=== PATIENT | female | born 2000 ===

== ENCOUNTER → 2021-06-08 | Outpatient (CLI) | payer OTHER ==
[~2021-06-08] MED LIST: CEPH125SU PO
== END ==
LOC: LAB SHORT 10:15
DX: R35.0 Frequency of micturition (principal)
CPT/HCPCS: 87086

== ENCOUNTER → 2024-09-30 | Outpatient (CLI) | payer OTHER | LOC: LAB 18:40 → LAB SHORT 18:40 | DX: Z32.02 Encounter for pregnancy test, result negative (principal) | CPT/HCPCS: 84702 ==

== ENCOUNTER → 2024-12-18 | Outpatient (CLI) | payer OTHER ==
[2024-12-18 12:32] LABS: BASOPHILS ABSOLUTE AUTO 0.07 K/mm3 (0.00-0.23); BASOPHILS PERCENT AUTO 1 % (0-2); EOSINOPHILS ABSOLUTE AUTO 0.01 K/mm3 (0.00-0.68); EOSINOPHILS PERCENT AUTO 0 % (0-6); Hematocrit 40.8 % (33.0-51.0); Hemoglobin 14.5 g/dL (11.5-16.0); IMMATURE GRAN ABSOLUTE AUTO 0.05 K/mm3 (0.00-0.10); IMMATURE GRAN PERCENT AUTO 0 % (0-1); LYMPHOCYTES ABSOLUTE AUTO 1.91 K/mm3 (0.84-5.20); LYMPHOCYTES PERCENT AUTO 16 % (21-46); MONOCYTES ABSOLUTE AUTO 0.72 K/mm3 (0.16-1.47); MONOCYTES PERCENT AUTO 6 % (4-13); Mean Corpuscular HGB Conc 35.5 g/dL (31.5-36.5); Mean Corpuscular Volume 87 fL (80-100); NEUTROPHILS ABSOLUTE AUTO 9.11 K/mm3 (1.96-9.15); NEUTROPHILS PERCENT AUTO 77 % (41-73); NRBC ABSOLUTE 0.00 K/mm3 (0.00-0.02); NRBC Auto 0.0 /100 WBC (0.0-0.2); Platelet Count 267 K/mm3 (150-400); RDW Coefficient Variation 11.9 % (11.7-14.2); RDW Standard Deviation 38.2 fL (35.1-46.3)
[2024-12-18 13:16] LABS: Alanine Aminotransfer (ALT/SGP 27.0 U/L (12-78); Albumin, Blood 4.0 g/dL (3.4-5.0); Albumin/Globulin Ratio 1.0 (0.8-1.8); Anion Gap 10.0 mmol/L (3-11); Aspartate Aminotrans (AST/SGOT 12.0 U/L (12-37); Bilirubin, Total 0.9 mg/dL (0.1-1.0); Blood Urea Nitrogen 14.0 mg/dL (8-24); CO2, Blood 25.0 mmol/L (21-32); Calcium, Blood 9.3 mg/dL (8.5-10.1); Chloride, Blood 106.0 mmol/L (98-108); Creatinine, Blood 0.67 mg/dL (0.40-1.00); Globulin, Blood 4.2 g/dL (2.2-4.0); Glucose, Blood 94.0 mg/dL (70-99); Potassium, Blood 3.5 mmol/L (3.5-5.5); Sodium, Blood 137.0 mmol/L (136-145); Total Protein, Blood 8.2 g/dL (6.4-8.2)
== END ==
LOC: LAB 12:27 → LAB SHORT 12:27
PROVIDERS: Family Medicine
DX: Z32.01 Encounter for pregnancy test, result positive (principal); N39.0 Urinary tract infection, site not specified
CPT/HCPCS: 80053; 84702; 85025; 87086

== ENCOUNTER → 2025-01-20 | Outpatient (CLI) | payer OTHER ==
[2025-01-20 21:01] LABS: Chlamydia Trachomatis Urine NOT DETECTED (NOT DETECT); Neisseria Gonorrhoea Urine NOT DETECTED (NOT DETECT)
== END ==
LOC: LAB SHORT 17:14 → LAB 17:14
PROVIDERS: Family Medicine
DX: Z34.01 Encounter for supervision of normal first pregnancy, first trimester (principal)
CPT/HCPCS: 87086; 87491; 87591